=== PATIENT | male | born 1960 | race Caucasian/White ===

== ENCOUNTER 2017-09-19 16:59 | Emergency (ER) | payer BC ==
[2017-09-19 17:18] VITALS: BP 107/73
--- NOTE | 2017-09-19 17:48 | EDM.PDOC ---
ED HPI GENERAL MEDICAL PROBLEM - General Chief Complaint: ENT Problem Stated Complaint: FACIAL LACERATION Time Seen by Provider: 09/19/17 17:15 Source of Information: Reports: Patient History Limitations: Reports: No Limitations - History of Present Illness Onset: Today Onset Date: 09/19/17 Onset Time: 16:00 Duration: Hour(s): (1) Location: Reports: Face Severity: Mild Improves with: Reports: None Worsens with: Reports: None Associated Symptoms: Reports: No Other Symptoms - Related Data Allergies Allergy/AdvReac Type Severity Reaction Status Date / Time No Known Allergies Allergy Verified 09/19/17 17:18 Home Meds: Home Meds Aspirin [Adult Low Dose Aspirin EC] 81 mg PO DAILY 03/24/13 [History] FA/Lycopene/Lut/MV,Ca,Iron,Min [Centrum] 1 tab PO DAILY 03/24/13 [History] Pravastatin [Pravachol] 20 mg PO BEDTIME 03/24/13 [History] Allopurinol [Zyloprim] 150 mg PO DAILY 06/13/16 [History] Ibuprofen 200 mg PO Q4H PRN 06/13/16 [History] Past Medical History HEENT History: Reports: Impaired Vision Cardiovascular History: Reports: High Cholesterol Respiratory History: Reports: Sleep Apnea Gastrointestinal History: Reports: Colon Polyp Genitourinary History: Reports: BPH, Prostate Disorder Musculoskeletal History: Reports: Back Pain, Chronic Other Musculoskeletal History: FX left leg with plate rods and and screws Neurological History: Reports: None Psychiatric History: Reports: None Endocrine/Metabolic History: Reports: Obesity/BMI 30+ Hematologic History: Reports: None Immunologic History: Reports: None Oncologic (Cancer) History: Reports: None - Infectious Disease History Infectious Disease History: Reports: None - Past Surgical History Cardiovascular Surgical History: Reports: None Respiratory Surgical History: Reports: None GI Surgical History: Reports: Colonoscopy Other Musculoskeletal Surgeries/Procedures:: broken femur Social & Family History - Tobacco Use Smoking Status *Q: Never Smoker - Caffeine Use Caffeine Use: Reports: None - Recreational Drug Use Recreational Drug Use: No ED ROS GENERAL - Review of Systems Review Of Systems: See Below Constitutional: Reports: No Symptoms HEENT: Reports: Glasses. Denies: Nose Pain Respiratory: Reports: No Symptoms Cardiovascular: Reports: No Symptoms Endocrine: Reports: No Symptoms GI/Abdominal: Reports: No Symptoms : Reports: No Symptoms Musculoskeletal: Reports: No Symptoms Skin: Reports: Wound (5cm laceration to superior aspect left of eyelid) Neurological: Reports: No Symptoms Psychiatric: Reports: No Symptoms Hematologic/Lymphatic: Reports: No Symptoms Immunologic: Reports: No Symptoms ED EXAM, GENERAL - Physical Exam Exam: See Below Exam Limited By: No Limitations General Appearance: Alert, WD/WN, No Apparent Distress Eye Exam: Bilateral Eye: EOMI, PERRL Ears: Normal External Exam, Normal Canal, Hearing Grossly Normal, Normal TMs Nose: Normal Inspection, Normal Mucosa, No Blood. No: Nasal Tenderness Throat/Mouth: Normal Inspection, Normal Lips, Normal Teeth, Normal Gums, Normal Oropharynx, Normal Voice, No Airway Compromise Head: Normocephalic, Other (5cm laceration to superior aspect left of eyelid) Neck: Normal Inspection, Supple, Non-Tender, Full Range of Motion Respiratory/Chest: No Respiratory Distress, Lungs Clear, Normal Breath Sounds, No Accessory Muscle Use, Chest Non-Tender Cardiovascular: Normal Peripheral Pulses, Regular Rate, Rhythm, No Edema, No Gallop, No JVD, No Murmur, No Rub GI/Abdominal: Normal Bowel Sounds, Soft, Non-Tender, No Organomegaly, No Distention, No Abnormal Bruit, No Mass Back Exam: Normal Inspection, Full Range of Motion, NT Extremities: Normal Inspection, Normal Range of Motion, Non-Tender, Normal Capillary Refill, No Pedal Edema Neurological: Alert, Oriented, CN II-XII Intact, Normal Cognition, Normal Gait, Normal Reflexes, No Motor/Sensory Deficits Psychiatric: Normal Affect, Normal Mood Skin Exam: Wound/Incision (5cm laceration to superior aspect left of eyelid without canalicular trauma) Lymphatic: No Adenopathy Course - Vital Signs Last Recorded V/S: Last Vital Signs Temp 36.4 C 09/19/17 17:14 Pulse 72 09/19/17 17:14 Resp 18 09/19/17 17:14 BP 107/73 09/19/17 17:14 Pulse Ox 98 09/19/17 17:14 Departure - Departure Time of Disposition: 18:20 Disposition: DC/Tfer to Acute Hospital 02 Condition: Good Clinical Impression: Eyelid laceration, left Qualifiers: Encounter type: initial encounter Qualified Code(s): S01.112A - Laceration without foreign body of left eyelid and periocular area, initial encounter - Discharge Information Instructions: Facial Laceration Referrals: PCP,Not In Area [Primary Care Provider] - Forms: ED Department Discharge, Interfacility Transfer EMTALA Additional Instructions: 1. Discussed case with Dr Karrie Jain who recommended evaluation in ER aand possible Plastics closure. 2. Pt will go by private vehicle 3. are cleaned and patient instructed to avoid touching wound 4. Pt has no one who can drive so dressing was not applied due to inhibition of vision while driving - Assessment/Plan Assessment:: 1. 5cm laceration to superior aspect left of eyelid 2. fall from 2ft from a ladder Plan: 1. Discussed case with Dr Karrie Jain who recommended evaluation in ER aand possible Plastics closure. 2. Pt will go by private vehicle 3. are cleaned and patient instructed to avoid touching wound 4. Pt has no one who can drive so dressing was not applied due to inhibition of vision while driving
== END 2017-09-19 18:30 ==
LOC: KA.ED 16:59
DX: S01.112A Laceration without foreign body of left eyelid and periocular area, initial encounter (principal); W11.XXXA Fall on and from ladder, initial encounter
CPT/HCPCS: 99283